=== PATIENT | female | born 1965 | race Caucasian/White ===

== ENCOUNTER 2021-05-20 06:31 | Inpatient (IN) | payer MEDICAID ==
[~2021-05-20] VITALS: Ht 160 cm; Wt 79.9 kg
[~2021-05-20 06:31] MED LIST: ALPR0.5T7 PO; HYDR50CA PO; LISI-167 PO
--- NOTE | 2021-05-20 06:51 | NUR ---
Report to Leisa RODGERS
[2021-05-20] MEDS ORDERED: HYDROmorphone 2 MG/ML, 1ML ONE (07:10)
[2021-05-20] MEDS ORDERED: ONDANSETRON ODT 4 MG ONE (07:10)
--- NOTE | 2021-05-20 07:21 | NUR ---
This pt presents for abd pain. 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 She is short with me and the medical student expressing irritation at questions. Pt educated about about meds prior to administration, she said "what am I getting," pt educated she is to receive Dilaudid and pt states "good."
[2021-05-20] MEDS ORDERED: ONDANSETRON ODT 4 MG PO ONE (07:30)
[2021-05-20] MEDS ORDERED: SODIUM CHLORIDE 0.9% 1,000 ML IV ONE (07:30)
[2021-05-20] MEDS ORDERED: SODIUM CHLORIDE FLUSH 10ML SYR IVF ONE (07:30)
[2021-05-20] MEDS ORDERED: HYDROmorphone 1 MG/ML, 1ML INJ IM ONE (07:30)
[2021-05-20 07:42] LABS: MEAN CORPUSCULAR HEMOGLOBIN 26.8 pg (27.0-34.8); MEAN CORPUSCULAR HGB CONC 31.9 g/dL (32.4-35.8); MEAN PLATELET VOLUME 7.1 fL (7.4-10.4); PLATELET COUNT 171 x10^3/uL (130-400); RED BLOOD COUNT 4.65 x10^6/uL (3.82-5.3)
--- NOTE | 2021-05-20 07:57 | NUR ---
This RN to bedside to attempt to start IV. Pt states to this RN "you have such an attitude with me, it's like you don't have a heart." Pt requesting water and/ or ice chips, pt educated about NPO status and given mouth swabs. This RN attempting to start IV again, pt states "I need to pee, I can't wait." Pt up to bathroom with steady gait. Given urine cup for UA.
[2021-05-20 07:59] LABS: ALANINE AMINOTRANSFERASE 24 U/L (12-78); ALBUMIN 2.8 g/dL (3.4-5.0); ANION GAP 9 mmol/L (5-15); CALCIUM 9.2 mg/dL (8.5-10.1); CHLORIDE 103 mmol/L (98-107); CREATININE 1.45 mg/dL (0.55-1.02)
[2021-05-20 08:01] LABS: ALKALINE PHOSPHATASE 154 U/L (45-117); BILIRUBIN,TOTAL 3.3 mg/dL (0.2-1.0)
--- NOTE | 2021-05-20 08:06 | NUR ---
This RN back to bedside after pt back from bathroom. This RN attempted to educate pt about procedure to look for EJ IV. Questioned, "are you going to let me look in your neck?" Pt states "yeah, just tell me what I need to do and I'll fucking do it." This RN moving bed into position, pt states "I want a different nurse, you don't care at all." print developer and alumina plant supervisor RN made aware. ANA MARIA Stahl to bedside to attempt to start IV.
[2021-05-20 08:15] LABS: BAND#(MANUAL) 4.68 x10^3/uL; BANDS%(MANUAL) 28 % (0-7); LYMPHS% (MANUAL) 3 % (22-44); METAMYELOCYTES# (MANUAL) 0.67 x10^3/uL (0-0); METAMYELOCYTES% (MANUAL) 4 % (0-1); MONOS% (MANUAL) 3 % (2-9); SEG#(MANUAL) 10.35 x10^3/uL (1.8-6.8); SEGS% (MANUAL) 62 % (42-75)
[2021-05-20 08:16] LABS: HYPOCHROMIA 1+
[2021-05-20 08:17] LABS: <PLATELET ESTIMATE> ADEQUATE; <PLT MORPHOLOGY> NORMAL PLT MORPH; PMNS WITH VACUOLES 1+
--- NOTE | 2021-05-20 08:26 | NUR ---
ANA MARIA Madera and ANA MARIA Tidwell both at bedside for IV start. CT called to inform pt ready for imaging.
[2021-05-20] MEDS ORDERED: ONDANSETRON 2MG/ML, 2ML ONE (08:28)
[2021-05-20] MEDS ORDERED: MORPHINE SULFATE 4 MG/ML, 1ML ONE ×2 (08:29→08:58)
[2021-05-20] MEDS ORDERED: CEFTRIAXONE 1,000 MG in DEXTROSE 5% 50 ML IVPB ONE (08:30)
[2021-05-20] MEDS ORDERED: SODIUM CHLORIDE 0.9%, 500ML IVBOLUS ONE (08:30)
[2021-05-20] MEDS ORDERED: ONDANSETRON 2MG/ML, 2ML IVPush ONE (08:30)
[2021-05-20] MEDS: MORPHINE SULFATE 4 MG/ML, 1ML IVPush PRN ×2 (08:31→09:01)
--- NOTE | 2021-05-20 08:44 | NUR ---
REPORT FROM RICHARD RN, ASSUME CARE OF PT AT THIS TIME. IV PLACED TO RAC. PT MEDICATED PER ERP ORDER FOR 10/21 ABD PAIN, NS BOLUS AND ANTIBIOTICS INFUSING PER ERP ORDER. CONFIRMED WITH ERP, NO NEED FOR BC X 2 PRIOR TO ANTIBIOTIC ADMINISTERED. PT TO CT.
--- NOTE | 2021-05-20 08:46 | NUR ---
DARK YOANA URINE COLLECTED/SENT TO LAB.
[2021-05-20] MEDS ORDERED: METRONIDAZOLE PMX 500MG/100ML 100 ML IV ONE (09:00)
[2021-05-20 09:01] LABS: MICROSCOPIC INDICATED
--- NOTE | 2021-05-20 09:08 | NUR ---
PT BACK FROM CT. BOLUS AND ANTIBIOTIC RESTARTED. VS UPDATED. ERP NOTIFIED OF HYPOTENSION, / WHICH IS SIMILAR TO TRIAGE. PINK SEPSIS SHEET STARTED.
[2021-05-20] MEDS ORDERED: PANTOPRAZOLE 40 MG IV ONE (09:17)
--- NOTE | 2021-05-20 09:25 | NUR ---
VSS/UPDATED. PT STATES PAIN IS WORSE TO RUQ, REQUESTING MORE PAIN MEDS. ERP NOTIFIED OF IMPROVED BP AND REQUEST.
[2021-05-20] MEDS ORDERED: METRONIDAZOLE PMX 500MG/100ML 100 ML ONE (09:27)
[2021-05-20] MEDS ORDERED: HYDROmorphone 1 MG/ML, 1ML INJ ONE (09:28)
[2021-05-20] MEDS ORDERED: PANTOPRAZOLE 40 MG IV IVPush ONE (09:30)
--- NOTE | 2021-05-20 09:40 | NUR ---
PT MEDICATED PER ERP ORDER FOR 10/21 ABD PAIN. VSS/UPDATED IN COMPUTER. PT TO MRI.
--- NOTE | 2021-05-20 09:50 | NUR ---
PT BACK FROM MRI, UNABLE TO DO EXAM. PER GRIZZLYMAN, PT REFUSING AND STATES SHE CAN'T HOLD STILL AND THAT PAIN IS TOO MUCH. ERP NOTIFIED.
[2021-05-20] MEDS ORDERED: LORazepam 2 MG/ML, 1ML ONE (09:58)
[2021-05-20] MEDS ORDERED: LORazepam 2 MG/ML, 1ML IV ONE (10:00)
[2021-05-20] MEDS ORDERED: HYDROmorphone 1 MG/ML, 1ML INJ IV ONE (10:00)
--- NOTE | 2021-05-20 10:04 | NUR ---
REPORT TO MIRTA. ADDITIONAL ORDER FOR ATIVAN OBTAINED FROM ERP AND GIVEN. PT SLEEPING, READY FOR TRANSPORT.
[2021-05-20 10:35] VITALS: BP 110/73
[2021-05-20 10:43] VITALS: BP 120/76
[2021-05-20] MEDS ORDERED: OMNIPAQUE 350 MG/ML, 100ML BOTTLE ONE (10:49)
[2021-05-20] MEDS: SODIUM CHLORIDE 0.9% 1,000 ML IV SCH ×2 (11:56→20:40)
[2021-05-20] MEDS ORDERED: DOCUSATE 100 MG CAPSULE PO PRN (12:00)
[2021-05-20] MEDS ORDERED: ONDANSETRON ODT 4 MG PO PRN (12:00)
[2021-05-20] MEDS ORDERED: PROMETHAZINE 25 MG/ML, 1ML IM PRN (12:00)
[2021-05-20] MEDS ORDERED: hydrALAzine 20 MG/ML, 1ML IVPush PRN (12:00)
[2021-05-20] MEDS ORDERED: ONDANSETRON 2MG/ML, 2ML IVPush PRN (12:00)
[2021-05-20 12:09] VITALS: BP 104/61
[2021-05-20] MEDS: morphine SULFATE 10 MG/ML, 1ML IVPush PRN ×3 (14:39→22:24)
[2021-05-20] MEDS: LORazepam 2 MG/ML, 1ML IVPush PRN (17:12)
[2021-05-20 19:20] VITALS: BP 120/70
[2021-05-20] MEDS: PANTOPRAZOLE 40 MG IV IVPush SCH (20:40)
[2021-05-20 20:47] VITALS: BP 118/71
[2021-05-20] MEDS ORDERED: MORPHINE SULFATE 4 MG/ML, 1ML IVPush ONE (22:30)
[2021-05-21 02:22] VITALS: BP 140/80
[2021-05-21] MEDS: morphine SULFATE 10 MG/ML, 1ML IVPush PRN (02:31)
[2021-05-21] MEDS: SODIUM CHLORIDE 0.9% 1,000 ML IV SCH (04:17)
[2021-05-21 08:03] VITALS: BP 137/62
[2021-05-21] MEDS: ACETAMINOPHEN 325 MG TABLET PO PRN ×2 (08:48→14:36)
[2021-05-21] MEDS: CEFTRIAXONE 2 GM in DEXTROSE 5% 50 ML IVPB SCH (08:50)
[2021-05-21] MEDS: PANTOPRAZOLE 40 MG IV IVPush SCH ×2 (08:50→22:13)
[2021-05-21 10:30] LABS: MEAN PLATELET VOLUME 7.3 fL (7.4-10.4); PLATELET COUNT 125 x10^3/uL (130-400); RED BLOOD COUNT 4.11 x10^6/uL (3.82-5.3); RED CELL DISTRIBUTION WIDTH 14.6 % (9.6-15.2)
[2021-05-21 10:39] LABS: ALANINE AMINOTRANSFERASE 17 U/L (12-78); ANION GAP 8 mmol/L (5-15); CALCIUM 8.1 mg/dL (8.5-10.1); CHLORIDE 111 mmol/L (98-107); CHOLESTEROL, TOTAL 71 mg/dL (140-239); CREATININE 0.69 mg/dL (0.55-1.02)
[2021-05-21 10:47] LABS: ALKALINE PHOSPHATASE 137 U/L (45-117); BILIRUBIN,TOTAL 2.5 mg/dL (0.2-1.0); CHOL/HDL RATIO 7.1; HDL CHOL % 14 % (28-40); HDL CHOLESTEROL (DIRECT) 10 mg/dL (40-60); LDL CHOLESTEROL,CALCULATED 35 mg/dL (54-169); LDL/HDL RATIO 3.5 (0.5-3.0); TOTAL PROTEIN 6.4 g/dL (6.4-8.2); TRIGLYCERIDES 130 mg/dL (50-200); VLDL CHOLESTEROL 26 mg/dL (0-25)
[2021-05-21] MEDS: HYDROmorphone 1 MG/ML, 1ML INJ IV PRN ×3 (10:50→22:13)
[2021-05-21 10:53] LABS: <RBC MORPHOLOGY> NORMAL; BAND#(MANUAL) 3.57 x10^3/uL; BANDS%(MANUAL) 23 % (0-7); LYMPH#(MANUAL) 0.78 x10^3/uL (1-3.4); LYMPHS% (MANUAL) 5 % (22-44); MONOS#(MANUAL) 0.62 x10^3/uL (0.3-2.7); MONOS% (MANUAL) 4 % (2-9); SEG#(MANUAL) 10.54 x10^3/uL (1.8-6.8); SEGS% (MANUAL) 68 % (42-75)
[2021-05-21 10:54] LABS: <PLATELET ESTIMATE> DECREASED; <PLT MORPHOLOGY> NORMAL PLT MORPH; PMNS WITH VACUOLES 1+
[2021-05-21] MEDS ORDERED: ENOXAPARIN 40 MG/0.4 ML SQ SCH (11:00)
[2021-05-21] MEDS ORDERED: MAALOX/HYOSCYAMINE/LIDOCAINE 45 ML BTL PO ONE (11:00)
[2021-05-21] MEDS ORDERED: POTASSIUM CHLORIDE 40 MEQ in SODIUM CHLORIDE 0.9% 500 ML IV ONE (13:30)
[2021-05-21] MEDS: NS + 20MEQ KCL 1,000 ML IV SCH (13:59)
[2021-05-21 14:36] VITALS: BP 152/67
[2021-05-21 16:43] LABS: OCCULT BLOOD POSITIVE (NEGATIVE)
[2021-05-21 18:30] VITALS: BP 146/71
[2021-05-21] MEDS: LORazepam 2 MG/ML, 1ML IVPush PRN (20:58)
[2021-05-22 00:39] VITALS: BP 139/74
[2021-05-22] MEDS: HYDROmorphone 1 MG/ML, 1ML INJ IV PRN ×4 (02:33→21:58)
[2021-05-22] MEDS: NS + 20MEQ KCL 1,000 ML IV SCH ×2 (04:58→17:44)
[2021-05-22 07:20] VITALS: BP 147/76
[2021-05-22] MEDS: PANTOPRAZOLE 40 MG IV IVPush SCH ×2 (08:17→20:39)
[2021-05-22] MEDS: CEFTRIAXONE 2 GM in DEXTROSE 5% 50 ML IVPB SCH (08:18)
[2021-05-22] MEDS: morphine SULFATE 10 MG/ML, 1ML IVPush PRN ×2 (08:31→11:21)
[2021-05-22] MEDS: LORazepam 2 MG/ML, 1ML IVPush PRN (08:31)
[2021-05-22 08:50] LABS: BASOPHILS % (AUTO) 0 % (0-1); EOSINOPHILS % (AUTO) 0 % (1-7); LYMPHOCYTES % (AUTO) 6 % (22-44); MEAN CORPUSCULAR HEMOGLOBIN 27.2 pg (27.0-34.8); MEAN CORPUSCULAR HGB CONC 33.5 g/dL (32.4-35.8); MEAN PLATELET VOLUME 7.7 fL (7.4-10.4); MONOCYTES % (AUTO) 5 % (2-9); NEUTROPHILS % (AUTO) 89 % (42-75); PLATELET COUNT 118 x10^3/uL (130-400); RED BLOOD COUNT 3.77 x10^6/uL (3.82-5.3); RED CELL DISTRIBUTION WIDTH 15.1 % (9.6-15.2)
[2021-05-22 09:01] LABS: ANION GAP 8 mmol/L (5-15); CALCIUM 8.1 mg/dL (8.5-10.1); CHLORIDE 113 mmol/L (98-107); CREATININE 0.54 mg/dL (0.55-1.02)
[2021-05-22 09:04] LABS: FREE T4 (FREE THYROXINE) 1.17 ng/dL (0.76-1.46)
[2021-05-22] MEDS ORDERED: POTASSIUM CHLORIDE 40 MEQ in SODIUM CHLORIDE 0.9% 500 ML IV ONE (09:30)
[2021-05-22] MEDS: PIPERACILLIN/TAZO 3.375 GM in DEXTROSE 5% 50 ML IVPB SCH ×2 (11:24→18:35)
[2021-05-22 12:39] VITALS: BP 156/85
[2021-05-22 20:23] VITALS: BP 125/78
[2021-05-23 00:44] VITALS: BP 166/84
[2021-05-23] MEDS: LORazepam 2 MG/ML, 1ML IVPush PRN ×2 (01:03→21:24)
[2021-05-23] MEDS: HYDROmorphone 1 MG/ML, 1ML INJ IV PRN ×6 (02:15→22:39)
[2021-05-23] MEDS: PIPERACILLIN/TAZO 3.375 GM in DEXTROSE 5% 50 ML IVPB SCH ×3 (03:35→19:32)
[2021-05-23] MEDS: NS + 20MEQ KCL 1,000 ML IV SCH ×2 (03:35→09:30)
[2021-05-23 07:24] LABS: BASOPHILS % (AUTO) 0 % (0-1); EOSINOPHILS % (AUTO) 0 % (1-7); LYMPHOCYTES % (AUTO) 11 % (22-44); MEAN CORPUSCULAR HEMOGLOBIN 27.5 pg (27.0-34.8); MEAN CORPUSCULAR HGB CONC 33.7 g/dL (32.4-35.8); MEAN PLATELET VOLUME 7.7 fL (7.4-10.4); MONOCYTES % (AUTO) 11 % (2-9); NEUTROPHILS % (AUTO) 77 % (42-75); PLATELET COUNT 126 x10^3/uL (130-400); RED BLOOD COUNT 3.63 x10^6/uL (3.82-5.3)
[2021-05-23 07:31] LABS: ALANINE AMINOTRANSFERASE 12 U/L (12-78); ALBUMIN 1.7 g/dL (3.4-5.0); ANION GAP 5 mmol/L (5-15); CHLORIDE 112 mmol/L (98-107); CREATININE 0.43 mg/dL (0.55-1.02)
[2021-05-23 07:33] LABS: ALKALINE PHOSPHATASE 104 U/L (45-117); BILIRUBIN,TOTAL 0.9 mg/dL (0.2-1.0); TOTAL PROTEIN 5.9 g/dL (6.4-8.2)
[2021-05-23] MEDS: PANTOPRAZOLE 40 MG IV IVPush SCH ×2 (09:32→21:23)
[2021-05-23 13:00] VITALS: BP 159/72
[2021-05-23] MEDS ORDERED: OMNIPAQUE 350 MG/ML, 100ML BOTTLE ONE (15:03)
[2021-05-23 20:45] VITALS: BP 142/80
[2021-05-24 00:09] VITALS: BP 159/74
[2021-05-24] MEDS: NS + 20MEQ KCL 1,000 ML IV SCH ×4 (00:50→22:37)
[2021-05-24] MEDS: HYDROmorphone 1 MG/ML, 1ML INJ IV PRN ×6 (02:39→22:38)
[2021-05-24] MEDS: PIPERACILLIN/TAZO 3.375 GM in DEXTROSE 5% 50 ML IVPB SCH ×3 (02:44→19:31)
[2021-05-24 05:35] LABS: MEAN CORPUSCULAR HEMOGLOBIN 27.3 pg (27.0-34.8); MEAN CORPUSCULAR HGB CONC 33.3 g/dL (32.4-35.8); MEAN PLATELET VOLUME 7.6 fL (7.4-10.4); PLATELET COUNT 152 x10^3/uL (130-400); RED BLOOD COUNT 3.65 x10^6/uL (3.82-5.3); RED CELL DISTRIBUTION WIDTH 14.8 % (9.6-15.2)
[2021-05-24 05:49] LABS: CHLORIDE 109 mmol/L (98-107)
[2021-05-24 05:54] LABS: ALANINE AMINOTRANSFERASE 9 U/L (12-78); ALBUMIN 1.7 g/dL (3.4-5.0); ALKALINE PHOSPHATASE 87 U/L (45-117); BILIRUBIN,TOTAL 0.8 mg/dL (0.2-1.0); CALCIUM 7.6 mg/dL (8.5-10.1); CREATININE 0.33 mg/dL (0.55-1.02); TOTAL PROTEIN 5.8 g/dL (6.4-8.2)
[2021-05-24 05:55] LABS: ANION GAP 6 mmol/L (5-15)
[2021-05-24 06:01] LABS: <PLATELET ESTIMATE> DECREASED; <PLT MORPHOLOGY> NORMAL PLT MORPH; <RBC MORPHOLOGY> NORMAL; BAND#(MANUAL) 0.99 x10^3/uL; BANDS%(MANUAL) 9 % (0-7); LYMPH#(MANUAL) 0.77 x10^3/uL (1-3.4); LYMPHS% (MANUAL) 7 % (22-44); METAMYELOCYTES# (MANUAL) 0.11 x10^3/uL (0-0); METAMYELOCYTES% (MANUAL) 1 % (0-1); MONOS#(MANUAL) 0.22 x10^3/uL (0.3-2.7); MONOS% (MANUAL) 2 % (2-9); SEG#(MANUAL) 8.91 x10^3/uL (1.8-6.8); SEGS% (MANUAL) 81 % (42-75)
[2021-05-24] MEDS: PANTOPRAZOLE 40 MG IV IVPush SCH (08:35)
[2021-05-24 09:45] VITALS: BP 147/78
[2021-05-24] MEDS: LORazepam 2 MG/ML, 1ML IVPush PRN (13:36)
[2021-05-24 14:48] VITALS: BP 145/70
[2021-05-24] MEDS: PANTOPRAZOLE 40MG TABLET PO SCH (16:58)
[2021-05-24 19:13] VITALS: BP 139/85
[2021-05-25 00:48] VITALS: BP 167/87
[2021-05-25] MEDS: LORazepam 2 MG/ML, 1ML IVPush PRN (01:19)
[2021-05-25] MEDS: HYDROmorphone 1 MG/ML, 1ML INJ IV PRN ×2 (02:38→06:32)
[2021-05-25] MEDS: PIPERACILLIN/TAZO 3.375 GM in DEXTROSE 5% 50 ML IVPB SCH (02:42)
[2021-05-25] MEDS: PANTOPRAZOLE 40MG TABLET PO SCH (06:00)
[2021-05-25] MEDS: NS + 20MEQ KCL 1,000 ML IV SCH (06:17)
[2021-05-25 07:50] VITALS: BP 125/63
== END 2021-05-25 10:32 | disposition left against medical advice (07) | DRG 720 ==
LOC: ED 09:19 → EDIP 09:43 → 3N 10:33
PROVIDERS: ADMIT Internal Medicine; ATTEND Hospitalist
DX: A41.9 Sepsis, unspecified organism (principal); N17.0 Acute kidney failure with tubular necrosis; J18.9 Pneumonia, unspecified organism; F11.20 Opioid dependence, uncomplicated; E87.6 Hypokalemia; F17.210 Nicotine dependence, cigarettes, uncomplicated; K29.80 Duodenitis without bleeding; N39.0 Urinary tract infection, site not specified; E80.6 Other disorders of bilirubin metabolism; Z59.0 Homelessness; Z90.49 Acquired absence of other specified parts of digestive tract; Z90.710 Acquired absence of both cervix and uterus; Z88.6 Allergy status to analgesic agent; Z88.5 Allergy status to narcotic agent; Z53.29 Procedure and treatment not carried out because of patient's decision for other reasons
CPT/HCPCS: 36415; 71045; 74177; 80048; 80053; 80061; 80074; 81001; 82272; 83036; 83605; 83690; 83735; 84100; 84145; 84439; 84443; 85025; 86592; 87040; 87086; 87338; 87806; 93975; 96372; 96374; 96375; 99291; G0378; J0696; J1170; J1650; J2405; J2543; J3480; Q0162; Q9967; C9113; G0475; J2060; J2270; J7030; J7040